=== PATIENT | male | born 1990 | race American Indian/Alaskan Native ===

== ENCOUNTER 2018-07-05 10:15 | Emergency (ER) | payer SELFPAY ==
[2018-07-05 11:23] LABS: Bilirubin,Urine NEG (Negative); Blood,Urine NEG (Negative); Color,Urine Yellow (Yellow); Mucus,Urine 1+ /HPF; Protein,Urine <15 mg/dL mg/dL (Negative); Urobilinogen,Urine < 2.0 mg/dL (<2.0); WBC,Urine > 182.0 /HPF (0.0-6.0)
--- NOTE | 2018-07-05 12:11 | Emergency Department Report ---
ED Male HPI - General Chief complaint: Urogenital-Male Stated complaint: DISCHARGE Time Seen by Provider: 07/05/18 12:01 Source: patient Mode of arrival: Ambulatory Limitations: No Limitations - History of Present Illness Initial comments: This is a 28-year-old male here report that he is having yellow greenish penile discharge that started yesterday. He denies any pain any urinary burning or foul smelling odor. Patient is concerned for STD and wanted be tested and treated. Denies any abdominal or back pain. Denies any fever or chills. Denies any sore throat. He had unprotected sex and he does not know if the person that he had sex with has the same symptoms. denies any medical. Pain is 0-10 MD Complaint: penile discharge Onset/Timin -: days(s) Severity scale (0 -10): 0 new sexual partner discharge. denies: swelling, mass, rash, blood in urine, dysuria, fever, nausea /vomiting, incontinence - Related Data Sexually active: Yes Previous Rx's Medication Instructions Recorded Last Taken Type Sulfamethoxazole/Trimethoprim 1 each PO BID 10 Days #20 tablet 07/05/18 Unknown Rx [Bactrim DS TAB] Allergies Allergy/AdvReac Type Severity Reaction Status Date / Time No Known Allergies Allergy Unverified 07/05/18 10:35 ED Review of Systems ROS: Stated complaint: DISCHARGE Other details as noted in HPI Constitutional: denies: chills, fever ENT: denies: throat pain Respiratory: denies: cough, shortness of breath, SOB with exertion, SOB at rest , stridor, wheezing Cardiovascular: denies: chest pain, palpitations Gastrointestinal: denies: abdominal pain, nausea, vomiting Genitourinary: discharge. denies: urgency, dysuria, frequency, hematuria, testicular pain, testicular mass Musculoskeletal: denies: back pain, joint swelling, arthralgia Skin: denies: rash, lesions Neurological: denies: headache ED Past Medical Hx - Past Medical History Previous Medical History?: No - Surgical History Past Surgical History?: No - Family History Family history: hypertension - Social History Smoking Status: Never Smoker Substance Use Type: None - Medications Home Medications: Home Medications Medication Instructions Recorded Confirmed Last Taken Type Sulfamethoxazole/Trimethoprim 1 each PO BID 10 Days #20 tablet 07/05/18 Unknown Rx [Bactrim DS TAB] ED Physical Exam - General Limitations: No Limitations General appearance: alert, in no apparent distress - Head Head exam: Present: atraumatic, normocephalic, normal inspection - Eye Eye exam: Present: normal appearance, PERRL, EOMI Pupils: Present: normal accommodation - ENT ENT exam: Present: normal exam, normal orophraynx, mucous membranes moist - Neck Neck exam: Present: normal inspection, full ROM. Absent: tenderness, lymphadenopathy - Respiratory Respiratory exam: Present: normal lung sounds bilaterally. Absent: respiratory distress, chest wall tenderness - Cardiovascular Cardiovascular Exam: Present: regular rate, normal rhythm. Absent: systolic murmur, diastolic murmur, rubs, gallop - GI/Abdominal GI/Abdominal exam: Present: soft, normal bowel sounds. Absent: distended, tenderness, guarding, rebound, rigid, organomegaly, mass, bruit - Extremities Exam Extremities exam: Present: normal inspection, full ROM, normal capillary refill , other (No cce. + 2 pulses in all extremities, no neurovascular compromise). Absent: tenderness, pedal edema, joint swelling, calf tenderness - Back Exam Back exam: Present: normal inspection, full ROM, other (in place without any difficulties). Absent: tenderness, CVA tenderness (R), CVA tenderness (L), muscle spasm, paraspinal tenderness, vertebral tenderness, rash noted - Neurological Exam Neurological exam: Present: alert, oriented X3, normal gait - Psychiatric Psychiatric exam: Present: normal affect, normal mood - Skin Skin exam: Present: warm, dry, intact, normal color. Absent: rash ED Course Vital Signs 07/05/18 10:35 Temperature 98.6 F Pulse Rate 55 L Respiratory 16 Rate Blood Pressure 106/68 O2 Sat by Pulse 100 Oximetry - Reevaluation(s) Reevaluation #1: 07/05/18 12:21 Patient given azithromycin 1 g by mouth, ceftriaxone 250 mg IM and Flagyl 2 g by mouth to cover gonorrhea, chlamydia and Trichomonas. No adverse reaction ED Medical Decision Making - Lab Data Lab Results 07/05/18 Range/Units Unknown Urine Color Yellow (Yellow) Urine Turbidity Cloudy (Clear) Urine pH 6.0 (5.0-7.0) Ur Specific [place] 1.014 (1.003-1.030) Urine Protein <15 mg/dl (Negative) mg/dL Urine Glucose (UA) Neg (Negative) mg/dL Urine Ketones Neg (Negative) mg/dL Urine Blood Neg (Negative) Urine Nitrite Neg (Negative) Urine Bilirubin Neg (Negative) Urine Urobilinogen < 2.0 (<2.0) mg/dL Ur Leukocyte Esterase Lg (Negative) Urine WBC (Auto) > 182.0 H (0.0-6.0) /HPF Urine RBC (Auto) 5.0 (0.0-6.0) /HPF U Epithel Cells (Auto) 2.0 (0-13.0) /HPF Urine Mucus 1+ /HPF Gonorrhea and chlamydia pending Urine culture pending - Medical Decision Making This is a 28-year-old male here for STD check and treatment. He says that he is concerned for STD due to penile drainage. Urinalysis positive for white blood cell and moderate leukocyte Estrace. Color is cloudy. Urine culture pending and gonorrhea and chlamydia pending Assessment/plan Penile discharge-urinalysis positive for mucus, leukocyte esterase and white blood cell. Male concern for STD without diagnosis-she just be treated empirically and emergency room for Trichomonas, gonorrhea and chlamydia. He was given Rocephin 250 mg im, azithromycin 1 g by mouth and Flagyl 2 g by mouth Acute cystitis without hematuria-she will be treated with Bactrim DS. Discussed the patient and his urinalysis result and that that area and chlamydia tests take about 3-5 days to be resulted. I told him that he needs to refrain from having sexual activity for 2 weeks into the department in 7-10 days to be retested. I discussed with him that he needs to take antibiotic prescribed for a UTI and he needs to let his partner know or partner result that she was treated for STD in the emergency room and they will need to be tested. His understanding and he was given inferior on multiple clinics in the community for STD recheck to include health Department. Critical care attestation.: If time is entered above; I have spent that time in minutes in the direct care of this critically ill patient, excluding procedure time. ED Disposition Clinical Impression: Concern about STD in male without diagnosis, Abnormal penile discharge UTI (urinary tract infection) Qualifiers: Urinary tract infection type: acute cystitis Hematuria presence: without hematuria Qualified Code(s): N30.00 - Acute cystitis without hematuria Disposition: TO HOME OR SELFCARE Is pt being admited?: No Does the pt Need Aspirin: No Condition: Stable Instructions: Sexually Transmitted Diseases (ED), Safe Sex (ED), Urinary Tract Infection in Men (ED) Additional Instructions: instructed and discharge instruction paperwork. Please follow up with [facility] and or [facility] Department in 7-10 days for repeat urinalysis and for STD test Increase her fluid intake You were treated for gonorrhea, Trichomonas and chlamydia in emergency room and will not need another treatment. Please refrain from having sexual activity until you find out the results of your STD testing. Please take Bactrim DS and this will treat urinary tract infection. If his symptoms worsen, return to the emergency room Please let your sexual partner know that you were treated for STD in emergency room due to penile discharge and they'll need to get checked. Referrals: [facility] [Outside] - 7-10 days [facility] [Outside] - 7-10 days
[2018-07-05] MEDS ORDERED: XYLOCAINE 1% MPF 5 mL INFILTRATI ONE (12:18)
[2018-07-05] MEDS ORDERED: FLAGYL PO ONE (12:18)
[2018-07-05] MEDS ORDERED: ZITHROMAX PO ONE (12:18)
[2018-07-05] MEDS ORDERED: ROCEPHIN IM ONE (12:18)
[2018-07-05 13:12] VITALS: BP 110/80
== END 2018-07-05 13:11 | disposition home or self-care (01) ==
LOC: ED 10:15
DX: N30.00 Acute cystitis without hematuria (principal); Z20.2 Contact with and (suspected) exposure to infections with a predominantly sexual mode of transmission
CPT/HCPCS: 81001; 87086; 87591; 96372; 99283; J0696

== ENCOUNTER 2019-03-10 09:09 | Emergency (ER) | payer SELFPAY ==
[2019-03-10 09:20] VITALS: BP 129/75
--- NOTE | 2019-03-10 10:07 | Emergency Department Report ---
Chief Complaint: Urogenital-Male Stated Complaint: UTI/DISCHARGE/PAIN Time Seen by Provider: 03/10/19 09:54 - HPI History of Present Illness: Patient is a 28-year-old -[place] male who has 2 days of penile discharge with no pain. Patient denies any pain in testicles fevers chills nausea vomiting. He has had recent upper type sex. - ROS Review of Systems: All other systems are reviewed and are negative - Exam Vital Signs: Vital Signs 03/10/19 09:18 Temperature 98 F Pulse Rate 68 Respiratory 16 Rate Blood Pressure 129/75 [Left] O2 Sat by Pulse 96 Oximetry Physical Exam: Abdomen soft nontender patient is alert and oriented 3 and is nontoxic- appearing MSE screening note: Focused history and physical exam performed. Due to findings the following was ordered: ED Medical Decision Making - Medical Decision Making Patient is having STD type symptoms. Patient is not a medical emergency at this time. Patient was referred to the health Department. Patient opted o not pay the 150 co-pay. ED Disposition for MSE Clinical Impression: Urethritis Disposition: MED SCREENING EXAM-LEFT Is pt being admited?: No Does the pt Need Aspirin: No Condition: Stable Instructions: Nonspecific Urethritis in Men (ED) Referrals: GAGANDEEP U[facility] MD [Primary Care Provider] - 3-5 Days Forms: STI Treatment and Prevention Time of Disposition: 10:07
== END 2019-03-10 10:10 | disposition left against medical advice (07) ==
LOC: ED 09:09
DX: N34.2 Other urethritis (principal)
CPT/HCPCS: 99282